=== PATIENT | male | born 1985 | race African-American/Black ===

== ENCOUNTER 2021-06-03 12:54 | Emergency (ER) | payer MEDICAID ==
[~2021-06-03] VITALS: Ht 175.3 cm; Wt 92.0 kg
[2021-06-03] MEDS ORDERED: FLUORESCEIN SODIUM 1MG/STRIP RIGHTEYE ONE (13:45)
[2021-06-03] MEDS ORDERED: TETRACAINE 0.5% OPHTH DROPS 4ML RIGHTEYE ONE (13:45)
[2021-06-03] MEDS ORDERED: BALANCED SALT IRRIG SOLN 15ML IR ONE (13:45)
[2021-06-03] MEDS ORDERED: NAPR-681 PO ×3 (14:45→15:00)
[2021-06-03] MEDS ORDERED: POLY15DR31 EACHEYE ×3 (14:45→15:00)
[2021-06-03 15:27] VITALS: BP 109/83
== END 2021-06-03 15:28 | disposition home or self-care (01) ==
LOC: ER 14:03
DX: B02.9 Zoster without complications (principal); F31.9 Bipolar disorder, unspecified
CPT/HCPCS: 99283